=== PATIENT | female | born 1985 | race Asian ===

== ENCOUNTER 2020-09-20 14:24 | Emergency (ER) | payer OTHER ==
[~2020-09-20] VITALS: Ht 160 cm; Wt 56.2 kg
[2020-09-20 14:24] VITALS: BP 121/71
--- NOTE | 2020-09-20 15:00 | NUR ---
Patient discharged to home in stable condition. Written and verbal after care instructions given. Patient verbalizes understanding of instruction.
== END 2020-09-20 15:00 | disposition home or self-care (01) ==
LOC: ER 14:25
DX: Z20.822 Contact with and (suspected) exposure to COVID-19 (principal)
CPT/HCPCS: 99283; C9803; U0003

== ENCOUNTER 2020-09-30 16:54 | Emergency (ER) | payer OTHER ==
[~2020-09-30] VITALS: Ht 160 cm; Wt 56.2 kg
[2020-09-30 16:57] VITALS: BP 111/72
--- NOTE | 2020-09-30 17:34 | NUR ---
COVID SWAB DONE & SENT TO LAB.
== END 2020-09-30 17:35 | disposition home or self-care (01) ==
LOC: ER 17:00
DX: Z20.822 Contact with and (suspected) exposure to COVID-19 (principal)
CPT/HCPCS: 99283; C9803; U0003